=== PATIENT | female | born 1985 | race Caucasian/White ===

== ENCOUNTER 2020-01-05 09:33 | Outpatient (REF) | payer OTHER, SELFPAY ==
[2020-01-05 10:09] LABS: MANUAL DIFF FLAG NO
[2020-01-05 10:11] LABS: Basophils Absolute Auto 0.1 X10*3/uL (0.0-0.2); Basophils Percent Auto 1.1 % (0-2); Eosinophils Absolute Auto 0.3 X10*3/uL (0.0-0.4); Eosinophils Percent Auto 4.9 % (0-4); Hematocrit 40.4 % (37-47); Hemoglobin 13.8 g/dl (12.0-16.0); Lymphocytes Percent Auto 30.4 % (20-40); Mean Corpuscular HGB Conc 34.2 g/dl (31.0-35.0); Mean Corpuscular Hemoglobin 30.1 pg (27.0-33.0); Mean Corpuscular Volume 88.2 fL (80-98); Mean Platelet Volume 8.5 fL (9.4-12.3); Monocytes Absolute Auto 0.4 X10*3/uL (0.1-1.2); Monocytes Percent Auto 6.3 % (2-11); Neutrophils Absolute Auto 3.7 X10*3/uL (2.0-8.3); Neutrophils Percent Auto 57.3 % (45-73); Platelet Count 296 X10*3/uL (160-400); Red Blood Count 4.58 X10*6/uL (4.20-5.50); Red Cell Distribution Width 11.8 % (11.0-16.0); White Blood Count 6.5 X10*3/uL (4.8-10.8)
[2020-01-05 10:57] LABS: Alanine Aminotransferase 14 U/L (0-31); Albumin Level 4.1 g/dL (3.5-5.0); Alkaline Phosphatase 160 U/L (39-117); Anion Gap 11 (12-20); Aspartate Amino Transferase 14 U/L (5-31); Bilirubin Total 0.7 mg/dL (0.0-1.0); Blood Urea Nitrogen 14 mg/dL (9-16); Calcium 8.3 mg/dL (8.4-10.2); Carbon Dioxide 27 mmol/L (22-29); Chloride 107 mmol/L (96-108); Cholesterol 160 mg/dL; Estimated Glomerular Filt Rate > 60; Glucose Fasting 80 mg/dL (60-99); HDL Cholesterol 57 mg/dL; LDL Cholesterol Calculated 97 mg/dl; Potassium 4.3 mmol/l (3.3-5.1); Sodium 141 mmol/L (135-145); Total Protein 6.6 g/dL (6.5-8.0); Triglycerides 32 mg/dL
== END 2020-01-05 09:34 | disposition home or self-care (01) ==
LOC: HO.LAB 09:33
PROVIDERS: PCP Physician Assistant; Visit Provider Physician Assistant
DX: Z13.29 Encounter for screening for other suspected endocrine disorder (principal); Z13.220 Encounter for screening for lipoid disorders
CPT/HCPCS: 36415; 80053; 80061; 84443; 85025

== ENCOUNTER → 2020-01-23 13:28 | Outpatient (BNVA) | payer OTHER, SELFPAY | PROVIDERS: PCP Physician Assistant; Referring Provider Physician Assistant; Visit Provider Nurse Practitioner | DX: Z76.89 Persons encountering health services in other specified circumstances (principal) ==

== ENCOUNTER 2020-04-18 09:33 | Day surgery (SDC) | payer OTHER, SELFPAY ==
--- NOTE | 2020-04-17 09:47 | HO.ANESPROP2 ---
Documented by User: Maty Jeffers 04/17/20 09:48 HPI - Anesthesia Eval Consult details Narrative: 35yo F for Colonoscopy (CRC hx in Father) [facility] Active Problems Active Problems: All Active Problems (Updated 01/23/20 @ 15:08 by LILI Lord) No pertinent past medical history (Acute) No history of previous surgery (Acute) Family history of colon cancer in father (Acute) Past Medical History Medical History No pertinent past medical history Family History Family History Father Colon cancer, Onset Age: 50 Mother Alive and well Surgical History Surgical History No history of previous surgery Social History Social History Alcohol intake: current Alcohol intake frequency: a few times a week Alcohol type: wine Smoking Status: Never smoker Use of substances other than those prescribed or required for medical reasons: No Have you been hit, kicked, punched, or otherwise hurt by someone within the past year? If so, by whom?: No Advance Directives: No Advance Directives Information Provided: No Recently lost weight without trying: No Meds Allergies Allergy/AdvReac Type Severity Reaction Status Date / Time No Known Allergies Allergy Verified 04/18/20 09:51 Exam Exam Date and Time: April 17, 2020 0947 Documented by User: Louann Canales 04/18/20 09:56 [facility] Past Medical History Medical History No pertinent past medical history Family History Family History Father Colon cancer, Onset Age: 50 Mother Alive and well Surgical History Surgical History No history of previous surgery Social History Social History Alcohol intake: current Alcohol intake frequency: a few times a week Alcohol type: wine Smoking Status: Never smoker Use of substances other than those prescribed or required for medical reasons: No Have you been hit, kicked, punched, or otherwise hurt by someone within the past year? If so, by whom?: No Advance Directives: No Advance Directives Information Provided: No Recently lost weight without trying: No Meds Allergies Allergy/AdvReac Type Severity Reaction Status Date / Time No Known Allergies Allergy Verified 04/18/20 09:51
[2020-04-17 13:37] VITALS: BMI 24.4
[2020-04-18 09:52] VITALS: BP 111/78; PULSE 91; RESP 16; TEMP 37.2; O2SAT 98
[2020-04-18 10:01] LABS: UPreg QC Valid YES; Urine Pregnancy NEGATIVE (NEGATIVE)
[2020-04-18] MEDS: Lactated Ringers 1,000 ML 100 ML IVCONT (10:08)
--- NOTE | 2020-04-18 10:13 | HO.ANESPROP2 ---
[facility] Active Problems Active Problems: All Active Problems (Updated 04/17/20 @ 09:48 by Maty Jeffers) No history of previous surgery (Acute) Family history of colon cancer in father (Acute) Past Medical History Medical History No pertinent past medical history Family History Family History Father Colon cancer, Onset Age: 50 Mother Alive and well Surgical History Surgical History No history of previous surgery Social History Social History Alcohol intake: current Alcohol intake frequency: a few times a week Alcohol type: wine Smoking Status: Never smoker Use of substances other than those prescribed or required for medical reasons: No Have you been hit, kicked, punched, or otherwise hurt by someone within the past year? If so, by whom?: No Advance Directives: No Advance Directives Information Provided: No Recently lost weight without trying: No Meds Allergies Allergy/AdvReac Type Severity Reaction Status Date / Time No Known Allergies Allergy Verified 04/18/20 09:51 Active Medications: Current Medications Generic Name Dose Route Start Last Admin Trade Name Komal PRN Reason Stop Dose Admin Lactated Ringer's 1,000 mls @ 100 mls/hr 04/18/20 09:45 04/18/20 10:08 Lr IVCONT 100 mls/hr .Q10H MEI Administration Exam Exam Date and Time: April 18, 2020 1013 Height,Weight and Vital Signs: Height 5 ft Weight 56.699 kg Last Vital Signs Temp 99.0 F 04/18/20 09:52 Pulse 91 04/18/20 09:52 Resp 16 04/18/20 09:52 BP 111/78 04/18/20 09:52 Pulse Ox 98 04/18/20 09:52 Pertinent Lab Results Pertinent Lab Results: Laboratory Tests 04/18/20 09:45 Urine Test NEGATIVE Airway Mallampati Class: I TM Dist: >3cm Neck ROM: Full Heart: RRR Lungs: CTA
--- NOTE | 2020-04-18 10:17 | W.PM.OPN ---
Operative Note Operative Note Date of Service: 04/18/20 Narrative: Pre-op diagnosis: Colon cancer screening, Family hx of colon cancer (Dad diagnosed with stage 3 cancer at age 50 yrs and at age 55yrs). Post-op diagnosis: other (Hemorrhoids.) Procedure: COLONOSCOPY TILL CECUM Consent: Indications for the procedure and potential complications of bleeding, perforation, reaction to medications and missed diagnosis were discussed with the patient and informed consent was obtained. Instrument: Olympus PCF H 190 L variable stiffness pediatric colonoscope Monitoring: Vital signs and clinical assessment, intermittent blood pressure monitoring, continuous EKG monitoring, Pulse oximetry and Carbon Dioxide monitoring were done throughout the procedure. Colon withdrawl time was 15 minutes. Procedure: The patient was placed in the left lateral decubitis position and pre-procedure medications were administered. After a digital rectal examination of the ano-rectum, the video colonoscope was inserted into the rectum and advanced through the colon to the cecum. The colonoscope was slowly withdrawn in a retrograde panoramic fashion and the colon mucosa was carefully examined including a retroflexed view of the rectum. Findings and interventions are described below. Procedure Difficulty: Without difficulty Findings: Terminal Ileum: Not evaluated Cecum: Normal Ascending Colon: Normal Transverse Colon: Normal Descending Colon: Normal Sigmoid Colon: Normal Rectum: Normal Ano-rectum: Small non-inflamed internal hemorrhoids Colon preparation: Excellent Impression and Post Procedure Diagnosis: Colonoscopy Findings: No polyps were detected. Small hemorrhoids on retroflexed exam. Plan: Await pathology results Patient has an appointment on 04/25/20 in the [facility] with CHARLIE Lord to cancel since she is not having any GI symptoms and no biopsies were obtained during today's procedure. Repeat Colonoscopy in 5 years due to positive family hx of colon cancer. Above findings were reviewed with the patient and a handout on Hemorrhoids was given in the discharge area Surgeon: Neela Patel MD Anesthesia: MAC (Dr Singer) Estimated blood loss (mL): 0 Pathology: none sent Condition: stable Disposition: PACU
--- NOTE | 2020-04-18 10:18 | MHC.SHP ---
Pre-Procedural Eval Section A The patient is an INPATIENT: No The History & Physical has been completed within 30 days and I have reviewed it.: No Section B Chief Complaint: family hx of colon ca Relevant Family History (Specify if Yes): Yes Relevant Social History: None Present Medications: see Short Stay Collaborative assessment Medical History: No relevant PMH History of Previous Operations: No relevant previous surgery Allergies: Allergies Allergy/AdvReac Type Severity Reaction Status Date / Time No Known Allergies Allergy Verified 04/18/20 09:51 Review of Systems Sugical H&P ROS: Negative: Constitution, Cardiovascular, Respiratory and Gastrointestinal Exam Surgical H&P Exam: Normal: Heart, Normal: Lungs, Normal: Extremities and Normal: Abdomen Plan Diagnosis/Plan: Unchanged I have reviewed the history and physical and performed a pertinent physical examination on my patient. No changes have occurred unless specified.
[2020-04-18 10:58] VITALS: BP 98/56; PULSE 82; RESP 16; TEMP 36.8; O2SAT 100
--- NOTE | 2020-04-18 11:00 | HO.POSTANES ---
Post Anesthesia Evaluation Post Anesthesia Evaluation Vital Signs: Vital Signs Temp Pulse Resp BP Pulse Ox 04/18/20 10:58 98.2 F 82 16 98/56 L 100 04/18/20 09:52 99.0 F 91 16 111/78 98 Anesthesia: Monitored Mental Status: Awake Pain Control: Satisfactory Nausea/Vomiting: None Hydration: Adequate Anesthesia-Related Issues: No Anes. Related Issues
[2020-04-18 11:15] VITALS: BP 101/61; PULSE 74; RESP 18; O2SAT 100
== END 2020-04-18 11:45 | disposition home or self-care (01) ==
PROVIDERS: Nurse Practitioner; PCP Physician Assistant; Visit Provider Internal Medicine Gastroenterology
PROC: 0DJD8ZZ Inspection of Lower Intestinal Tract, Via Natural or Artificial Opening Endoscopic (ICD-10-PCS; CPT 45378; principal; 2020-04-18 10:40)
DX: Z12.11 Encounter for screening for malignant neoplasm of colon (principal); Z80.0 Family history of malignant neoplasm of digestive organs; K64.8 Other hemorrhoids
CPT/HCPCS: 45378; 81025

== ENCOUNTER 2021-04-13 10:54 | Outpatient (REF) | payer OTHER, SELFPAY ==
--- NOTE | ~2021-04-13 | US_ITS ---
EXAMINATION: US ABDOMEN LIMITED CLINICAL INFORMATION: Lump over left lower ribs. COMPARISON: None TECHNIQUE: Real-time imaging of the left upper abdominal wall FINDINGS: Palpable abnormality corresponds to a 1.3 x 1.5 x 0.4 cm hyperechoic solid avascular lesion just deep to the skin. This probably represents a lipoma. US/US abdomen limited IMPRESSION: Palpable abnormality probably corresponds to a lipoma.
--- NOTE | ~2021-04-13 | US_ITS ---
EXAMINATION: US SOFT TISSUE NECK CLINICAL INFORMATION: Soft tissue lumps over the bilateral occipital region. Question lymph nodes. COMPARISON: None TECHNIQUE: Ultrasound of the neck soft tissues is performed with high- frequency perez-scale imaging and color Doppler. FINDINGS: There are bilateral lymph nodes over the occipital area of measuring 0.5 x 0.6 x 0.1 cm on the right and 0.6 x 0.3 x 0.6 cm on the left. These are normal in size and demonstrate normal ultrasound morphology and flow. US/US soft tiss head and/or neck IMPRESSION: Bilateral normal-appearing occipital lymph nodes.
[2021-04-13 10:57] LABS: MANUAL DIFF FLAG NO
[2021-04-13 11:57] LABS: Basophils Absolute Auto 0.1 X10*3/uL (0.0-0.2); Basophils Percent Auto 0.5 % (0-2); Eosinophils Absolute Auto 0.2 X10*3/uL (0.0-0.4); Hemoglobin 13.7 g/dl (12.0-16.0); Imm Gran Abs Auto 0.03 X10*3/uL (0.00-0.03); Imm Gran Pct Auto 0.3 % (0.0-0.4); Lymphocytes Absolute Auto 2.4 X10*3/uL (1.2-4.9); Lymphocytes Percent Auto 26.3 % (20-40); Mean Corpuscular HGB Conc 34.3 g/dl (31.0-35.0); Mean Corpuscular Volume 87.7 fL (80.0-98.0); Mean Platelet Volume 8.9 fL (9.4-12.3); Monocytes Absolute Auto 0.5 X10*3/uL (0.1-1.2); Monocytes Percent Auto 5.6 % (2-11); Neutrophils Percent Auto 65.3 % (45-73); Platelet Count 295 X10*3/uL (160-400); Red Blood Count 4.56 X10*6/uL (4.20-5.50); White Blood Count 9.1 X10*3/uL (4.8-10.8)
[2021-04-13 12:28] LABS: Alanine Aminotransferase 11 U/L (0-31); Albumin Level 4.3 g/dL (3.5-5.0); Alkaline Phosphatase 71 U/L (39-117); Anion Gap 10 (12-20); Aspartate Amino Transferase 15 U/L (5-31); Bilirubin Total 0.5 mg/dL (0.0-1.0); Blood Urea Nitrogen 10 mg/dL (9-16); C Reactive Protein 0.08 mg/dL (< or = 0.50); Calcium 9.7 mg/dL (8.4-10.2); Carbon Dioxide 27 mmol/L (22-29); Chloride 106 mmol/L (96-108); Estimated Glomerular Filt Rate > 60; Glucose Random 94 mg/dL (60-115); Potassium 3.7 mmol/L (3.3-5.1); Sodium 139 mmol/L (135-145); Total Protein 7.2 g/dL (6.5-8.0)
[2021-04-13 14:23] LABS: Erythrocyte Sedimentation Rate 6 MM/HR (0-20)
== END 2021-04-13 10:55 | disposition home or self-care (01) ==
LOC: HO.LAB 10:54
PROVIDERS: PCP Physician Assistant; Visit Provider Nurse Practitioner Acute Care
DX: R59.9 Enlarged lymph nodes, unspecified (principal)
CPT/HCPCS: 36415; 76536; 76705; 80053; 85025; 85652; 86140

== ENCOUNTER 2022-11-30 14:09 | Outpatient (REF) | payer OTHER, SELFPAY ==
[2022-11-30 14:52] LABS: Appearance Urine Clear; Color Urine Yellow; Glucose Urine UA Negative (Negative); Leukocyte Esterase Urine Large (3+) (Negative); Nitrite Urine Positive (Negative); Specific Gravity - Urine 1.015 (1.005-1.025); UMIC TRIGGER UACC YES; Urine Blood Large (3+) (Negative); Urine Ketones Negative (Negative); Urine Protein 100 (2+) mg/dL (Neg-Trace)
[2022-11-30 15:07] LABS: Bacteria Urine 3+ (None Seen); Hyaline Casts Urine 0-2 /LPF (0-2); Squamous Epithelial Cell Urine 0-2 /HPF (0-2); UACC Culture Trigger YES; WBC Urine >50 /HPF (0-5)
== END 2022-11-30 14:10 | disposition home or self-care (01) ==
LOC: HO.LAB 14:09
PROVIDERS: PCP Internal Medicine; Visit Provider Internal Medicine
DX: R39.9 Unspecified symptoms and signs involving the genitourinary system (principal)
CPT/HCPCS: 81001; 87086; 87088; 87186

== ENCOUNTER 2024-03-27 07:58 | Outpatient (AMB) | payer OTHER, SELFPAY ==
--- NOTE | 2024-03-27 08:03 | A.OFFPC_ITS ---
Vital Signs 3 03/27/24 08:04 Height 4 ft 11.84 in Weight 126 lb 6 oz BMI 24.8 BP 110/60 Blood Pressure Location Lt brachial Position Sitting Pulse 78 Pulse Source Pulse Oximeter Temp 97.1 F Temp Source Skin Pulse Oximetry (%) 98 Oxygen Delivery Method Room Air Intake Visit Reasons: establish care Intake Note: Patient is here today to re-establish care. Pt decline flu shot today. Wood Type Finisher Required: No Chinese Medicine Practitioner: Not Required per policy Accompanied by: Self / Same As Patient Allergies No Known Allergies Allergy (Verified 03/27/24 08:17) Medication List - Last Reconciled 03/27/24 by Citlaly Collazo PA-C No Known Home Meds Tobacco use date assessed: 03/27/24 Dental Screening Dental Screen Date: 03/27/24 Did you have a dental visit in the last 12 months?: Yes Did you have a dental problem in the last 6 months where you did not have access to dental care?: No Was dental information given to patient?: Patient has dentist HPI establish care 2 HPI0 Details 39-year-old female coming to the office for the 1st time. In review of the notes, patient completed Pap smear with [facility] 2022. Patient also had mammogram completed 01/2023 advised to follow up at 40 for routine screening. Patient tells us today she had a colonoscopy 4 years ago 2021 and was recommended to follow up in 5 years due to having a family history of colorectal cancer. When she was seen in 2021 by her last PCP she was complaining of swollen lymph nodes which are still present but has been evaluated. She does however have a mass on the left leg on the lateral aspect of the left knee that has been growing and is tender to palpation. 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 1. Little interest or pleasure in doing things: not at all 2. Feeling down, depressed, or hopeless: not at all 3. Trouble falling or staying asleep, or sleeping too much: not at all 4. Feeling tired or having little energy: not at all 5. Poor appetite or overeating: not at all 6. Feeling bad about yourself - or that you are a failure or have let yourself or your family down: not at all 7. Trouble concentrating on things, such as reading the newspaper or watching television: not at all 8. Moving or speaking so slowly that other people could have noticed. Or the opposite - being so fidgety or restless that you have been moving around a lot more than usual: not at all 9. Thoughts that you would be better off or of hurting yourself in some way: not at all Total score: 0 Depression Screening Interpretation: Negative Depression Screening Done: Yes 47771 - PHQ-9 Billing: Yes Source: Developed by Drs. Jose Sky, Kaitlin Morgan, Dwight Aguilar and colleagues, with an educational jose from [employer]. Thrive Questionnaire Date Thrive assessed: 03/26/24 I am a: Patient What is your living situation today?: I have a steady place to live Within the past 12 months, did the food you bought not last and you didn't have the money to get more?: Never true Within the past 12 months, did you worry whether your food would run out before you got money to buy more?: Never true Do you have trouble paying for medicines?: No Do you have trouble getting transportation to medical appointments?: No Do you have trouble paying your heating and electricity bill?: No Do you have trouble taking care of your child, family member or friend?: No Do you have trouble with day-to-day activities such as bathing, preparing meals, shopping, managing finances, etc.?: No Are you currently unemployed and looking for a job?: No Are you interested in more education?: No Please select the resources that you would like help with: None Currently or been in a relationship where the following occur: No concerns reported THRIVE Score: 0 AUDIT C Alcohol Use Questionnaire (AUDIT-C) 1. How often do you have a drink containing alcohol?: 2-3 times a week 2. How many drinks containing alcohol do you have on a typical day when you are drinking?: 1 or 2 3. How often do you have six or more drinks on one occasion?: Never Total Score: 3 ARMANDO-7 AMB Questionnaire ARMANDO-7 Date ARMANDO - 7 assessed: 03/27/24 Feeling nervous, anxious, or on edge: 0 = Not at all Not being able to stop or control worryin = Not at all Worrying too much about different things: 0 = Not at all Trouble relaxin = Not at all Being so restless that it is hard to sit still: 0 = Not at all Becoming easily annoyed or irritable: 0 = Not at all Feeling afraid as if something awful might happen: 0 = Not at all Total ARMANDO-7 score (0-4 normal; 5-9 mild; 10-14 moderate; 15-21 severe): 0 Source: Developed by Drs. Jose Sky, Kaitlin Morgan, Dwight Aguilar and colleagues, with an educational jose from [employer]. ARMANDO-7 Assessment Billing ARMANDO-7 Assessment Tool: ARMANDO-7 Assessment 06328 Review of Systems Const Denies body aches, Denies fatigue, Denies fever(s), Denies frequent falls, Denies headache(s) and Denies weakness Eyes Reports no additional complaints, Denies change in vision and Reports requires corrective lenses (eye doctor yearly) ENT Denies dysphagia, Denies dizziness, Denies facial pain, Denies headache(s), Denies nasal congestion and Denies odynophagia Card Denies chest pain, Denies syncope, Denies irregular heart rhythm, Denies leg edema, Denies lightheadedness and Denies dyspnea Resp Denies cough and Denies dyspnea GI Denies abdominal pain, Denies constipation, Denies dysphagia, Denies dyspepsia, Denies diarrhea, Denies nausea, Denies odynophagia and Denies vomiting Denies urinary frequency, Denies dysuria, Denies urinary hesitancy and Denies urinary urgency Musc Denies back pain and Denies myalgias Skin/Breast Reports system reviewed and no additional complaints, except as documented Neuro Denies dizziness, Denies syncope, Denies frequent falls, Denies headache(s) and Denies weakness Psych Reports no additional complaints Endo Denies fatigue Physical exam (Primary Care) Vital Signs: Last Vital Signs Temp 97.1 F 03/27/24 08:04 BMI result Body Mass Index 24.8 Tobacco/Smoking Status: Tobacco use Status Tobacco use date assessed 04/13/21 03/27/24 08:04 Patient Tobacco Use Status Never used Tobacco 03/27/24 08:04 e-Cigarette/Vaping Use Never Used 03/27/24 08:04 PHQ-9: PHQ-9 Score PHQ-9: Total score 0 03/27/24 08:04 Depression Screening Interpretation: Negative Thrive Assessment: Date of Thrive Assessment Date Thrive assessed 03/26/24 03/27/24 08:04 Currently or been in a relationship where the following occur: No concerns reported Const General: cooperative, healthy appearing, comfortable and no acute distress Orientation/consciousness: patient oriented x3 HENMT Head: Yes normocephalic Ears: hearing grossly normal bilaterally General nose exam: Normal external nose present Eyes General: appearance normal, both eyes and all related structures Conjunctivae: conjunctivae normal Neck Neck: Yes full ROM and Yes no lymphadenopathy Resp Effort & Inspection: normal respiratory effort Auscultation: clear to auscultation bilaterally, no crackles, no rales, no rhonchi and no wheezes Cardio Rate: regular rate Rhythm: regular rhythm Skin General skin exam: no rashes or lesions noted Neuro General: patient oriented x3 Gait exam (Neuro): Normal gait present Extrem General: Yes normal to inspection, Yes full ROM and No edema Elbow/forearm/wrist images: 2 1. Localized swelling tender to palpation Psych Affect: normal affect Attitude: cooperative Insight: Good insight present (Psych) Judgement: Good judgement present (Psych) Coding Level of Care Code New Pt Level 4 (49109) Diagnoses Family history of colon cancer in father Z80.0 Soft tissue mass M79.89 Occipital lymphadenopathy R59.0 Additional Codes PHQ-9 - 80886 - PHQ-9 Billing: Yes ([id number]) ARMANDO-7 Assessment Billing - ARMANDO-7 Assessment Tool: ARMANDO-7 Assessment 54316 ([id number]) Assessment & Plan Assessment & Plan (1) Family history of colon cancer in father: Comment: age 45 CRC Code(s): Z80.0 - Family history of malignant neoplasm of digestive organs Category: Medical Plan: Referral placed to gastroenterology for possible repeat colonoscopy. (2) Soft tissue mass: Code(s): M79.89 - Other specified soft tissue disorders Category: Medical Plan: Patient complaining of soft tissue swelling on the lateral aspect of the left knee that is tender to palpation and has been growing. Ordered for ultrasound for further evaluation. (3) Occipital lymphadenopathy: Code(s): R59.0 - Localized enlarged lymph nodes Category: Medical Plan: Patient continues to have enlarged lymph nodes at the base of the skull not palpable on exam today. Patient has had these evaluated in the past determined to be benign and advised to monitor symptoms. Patient states her symptoms have not changed or worsened. Plan I ordered for blood work and we will have patient follow up in 6 months for annual exam or sooner pending blood work or if new problems arise. This note was constructed using voice recognition software. While every effort has been made to ensure accuracy and merchandising internship, still areas may have been included sometimes these areas may affect the content or meeting of the given symptoms. Total time spent caring for the patient today was 30 minutes. This includes time spent before the visit reviewing the chart, time spent during the visit, and time spent after the visit and documentation. Orders: Orders 2 Comprehensive Met. Panel Today Z00.00 - Encounter for general adult medical examination without abnormal findings Complete Blood Count Auto Diff Today Z00.00 - Encounter for general adult medical examination without abnormal findings TSH reflex Free T4 Today Z00.00 - Encounter for general adult medical examination without abnormal findings Lipid Panel Today E78.00 - Pure hypercholesterolemia, unspecified US extremity nonvascular Today M79.89 - Other specified soft tissue disorders Free T4 (Free Thyroxine) Today Z00.00 - Encounter for general adult medical examination without abnormal findings Vitamin B12 and Folate Today Z00.00 - Encounter for general adult medical examination without abnormal findings Vitamin D 25-OH Total Today Z00.00 - Encounter for general adult medical examination without abnormal findings Referrals 2 Gastroenterology Referral Z12.11 - Encounter for screening for malignant neoplasm of colon, Z80.0 - Family history of malignant neoplasm of digestive organs
[2024-03-27 08:04] VITALS: BP 110/60; PULSE 78; TEMP 36.2; O2SAT 98; BMI 24.8
== END 2024-03-27 08:32 | disposition home or self-care (01) ==
DX: Z80.0 Family history of malignant neoplasm of digestive organs (principal); M79.89 Other specified soft tissue disorders; R59.0 Localized enlarged lymph nodes

== ENCOUNTER → 2024-03-27 07:58 | Outpatient (BNVA) | payer OTHER, SELFPAY | DX: M79.89 Other specified soft tissue disorders (principal); R59.0 Localized enlarged lymph nodes; Z80.0 Family history of malignant neoplasm of digestive organs | CPT/HCPCS: 96127 ==

== ENCOUNTER 2024-04-12 14:24 | Outpatient (REF) | payer OTHER, SELFPAY ==
--- NOTE | ~2024-04-12 | US_ITS ---
CLINICAL HISTORY: M79.89 - Other specified soft tissue disorders Soft tissue ultrasound of the left knee Comparison: None FINDINGS: Images were obtained in the area of clinical concern. In this region, the soft tissue shows 3 subcutaneous hyperdense lesions without vascularity with the largest one measuring 1 x 0.6 x 1.9 cm. IMPRESSION: Possible lipomas in the region of interest. This document has been electronically signed by: Stephen Weathers MD on 04/12/2024 15:16:57
== END 2024-04-12 14:25 | disposition home or self-care (01) ==
LOC: HO.US 14:24
DX: M79.89 Other specified soft tissue disorders (principal)
CPT/HCPCS: 76882

== ENCOUNTER → 2024-04-12 14:26 | Outpatient (BNV) | payer OTHER, SELFPAY | PROVIDERS: Visit Provider Nuclear Medicine | DX: M79.89 Other specified soft tissue disorders (principal) | CPT/HCPCS: 76882 ==

== ENCOUNTER 2024-05-05 07:51 | Outpatient (REF) | payer OTHER, SELFPAY ==
[2024-05-05 11:53] LABS: MANUAL DIFF FLAG NO
[2024-05-05 12:02] LABS: Basophils Absolute Auto 0.1 X10*3/uL (0.0-0.2); Basophils Percent Auto 1.1 % (0-2); Eosinophils Absolute Auto 0.3 X10*3/uL (0.0-0.4); Eosinophils Percent Auto 5.3 % (0-4); Hematocrit 39.2 % (37.0-47.0); Hemoglobin 13.3 g/dl (12.0-16.0); Imm Gran Abs Auto 0.01 X10*3/uL (0.00-0.03); Imm Gran Pct Auto 0.2 % (0.0-0.4); Lymphocytes Absolute Auto 1.8 X10*3/uL (1.2-4.9); Lymphocytes Percent Auto 34.3 % (20-40); Mean Corpuscular HGB Conc 33.9 g/dl (31.0-35.0); Mean Corpuscular Hemoglobin 30.2 pg (27.0-33.0); Mean Corpuscular Volume 88.9 fL (80.0-98.0); Mean Platelet Volume 9.1 fL (9.4-12.3); Monocytes Absolute Auto 0.4 X10*3/uL (0.1-1.2); Monocytes Percent Auto 7.7 % (2-11); Neutrophils Absolute Auto 2.7 x10*3/uL (2.0-8.3); Neutrophils Percent Auto 51.4 % (45-73); Platelet Count 298 X10*3/uL (160-400); Red Blood Count 4.41 X10*6/uL (4.20-5.50); Red Cell Distribution Width 12.1 % (11.0-16.0); White Blood Count 5.3 X10*3/uL (4.8-10.8)
[2024-05-05 12:30] LABS: Alanine Aminotransferase 12 U/L (0-31); Albumin Level 3.9 g/dL (3.5-5.0); Alkaline Phosphatase 68 U/L (39-117); Anion Gap 9 (12-20); Aspartate Amino Transferase 19 U/L (5-31); Bilirubin Total 0.6 mg/dL (0.0-1.0); Blood Urea Nitrogen 11 mg/dL (9-16); Calcium 8.9 mg/dL (8.4-10.2); Carbon Dioxide 26 mmol/L (22-29); Chloride 109 mmol/L (96-108); Cholesterol 147 mg/dL (<200); Estimated Glomerular Filt Rate > 60; Glucose Random 88 mg/dL (60-115); HDL Cholesterol 57 mg/dL (>40); LDL Cholesterol Calculated 80 mg/dL (<100); Sodium 140 mmol/L (135-145); Total Protein 6.8 g/dL (6.5-8.0); Triglycerides 54 mg/dL (<150)
[2024-05-05 12:39] LABS: Free T4 (Free Thyroxine) 0.88 ng/dL (0.71-1.85); TSH reflex Free T4 2.22 uIU/mL (0.32-4.0); Vitamin D 25-OH Total 38.5 ng/mL (>30)
[2024-05-05 12:50] LABS: Folate 14.1 ng/mL (> or = 4.0); Vitamin B12 459 pg/mL (200-900)
== END 2024-05-05 07:52 | disposition home or self-care (01) ==
LOC: HO.HMGCLDS 07:51
DX: Z00.00 Encounter for general adult medical examination without abnormal findings (principal); E78.00 Pure hypercholesterolemia, unspecified
CPT/HCPCS: 36415; 80053; 80061; 82306; 82607; 82746; 84439; 84443; 85025

== ENCOUNTER 2024-08-20 15:10 | Outpatient (AMB) | payer OTHER, SELFPAY ==
--- NOTE | 2024-08-20 15:12 | A.OFFVIS_ITS ---
Vital Signs 08/20/24 15:17 Weight 127 lb BP 114/62 Blood Pressure Location Rt brachial Position Sitting Pulse 74 Intake Visit Reasons: cyst of the inner knee Intake Note: Patient referred by pcp Citlaly Collazo PA-C for cyst on Lt inner knee. Present for 3yrs. Patient c/o: sometimes sensitive to touch. No hx of trauma. Donor Relations Coordinator Required: No Accompanied by: Daughter Allergies No Known Allergies Allergy (Verified 08/20/24 15:16) HPI HPI cyst of the inner knee: Details: 39-year-old female referred for a lump near the knee. She describes having a lump on the anterior lateral thigh adjacent to the knee. She said this for several months . He says this has been bothering her so she wants this removed. She had an ultrasound on this this area last March, showing what appeared to be 3 lipomas, with the largest 1 about 1.9 cm in size. [facility] Medical History (Updated 08/20/24 @ 15:39 by Los Chavez MD) Lipoma of thigh No pertinent past medical history Surgical History No history of previous surgery Family History Father Colon cancer, Onset Age: 50 Mother Alive and well Social History Housing: House Alcohol intake: current Alcohol intake frequency: a few times a week Alcohol type: wine Patient Tobacco Use Status: Never used Tobacco e-Cigarette/Vaping Use: Never Used Second Hand Smoke Exposure: No service: No Current occupational status: employed Current occupation: Pre-schoolground school instructor Cognitive needs: No Hearing needs: No Vision needs: Yes (Glasses/Contacts) Review of Systems Const Denies chills and Denies fever(s) Card Denies chest pain, Denies dyspnea and Denies dyspnea on exertion Resp Denies cough, Denies dyspnea and Denies dyspnea on exertion GI Denies hematochezia and Denies change in bowel habits Denies hematuria Musc Denies back pain and Denies limited range of motion Neuro Denies focal weakness and Denies convulsions Psych Denies depression and Denies mood swings Physical Exam Const General: comfortable and no acute distress Orientation/consciousness: patient oriented x3 Neck Neck: Yes no lymphadenopathy Resp Auscultation: clear to auscultation bilaterally Cardio Rhythm: regular rhythm GI Palpation (GI): Soft to palpation, nontender and no guarding Neuro General: patient oriented x3 Extrem Other: Distal left thigh anterolateral area near the knee is note of a lipomatous mass, about 1.5 cm, mobile and well-defined Office Procedures Excision Details: She was in supine position. The area of the lipoma was prepped and draped. Lidocaine 1% was used for local anesthesia. I made an incision in the skin of the lipoma with a blade 15. This was carried down through the full-thickness of the skin and subcutaneous fat until the lipoma was visualized. I sharply dissected the lipoma off the rest of the subcutaneous layer with Metzenbaum scissors. The lipoma was delivered. This was should about 1.4 cm. Sent as specimen. I closed the incision with full-thickness nylon 3-0 simple interrupted sutures. Dressings were applied. The procedure was completed. She tolerated procedure well. There were no immediate complications. There was minimal blood loss. 92152-fvhgc/arms/legs 1.1-2cm Procedure code (CPT) selection complete Assessment & Plan Assessment & Plan (1) Lipoma of thigh: Code(s): D17.20 - Benign lipomatous neoplasm of skin and subcutaneous tissue of unspecified limb Category: Medical Plan: She wanted this removed in view of discomfort. She understood the technique of excision under local anesthesia and was aware of the risks, benefits, and alternatives Excision was done in the office under local anesthesia. She tolerated procedure well. She was given wound care instructions. I will see her in the office for a wound check in about 2 weeks. Coding Level of Care Code New Pt Level 3 (62995) Diagnoses Lipoma of thigh D17.20 CPT Codes Trunk/Arms/Legs - CPT: 55858-urjjd/arms/legs 1.1-2cm ([id number])
[2024-08-20 15:17] VITALS: BP 114/62; PULSE 74
== END 2024-08-20 15:39 | disposition home or self-care (01) ==
LOC: HO.HGS 15:11
PROVIDERS: Visit Provider Surgery
DX: D17.20 Benign lipomatous neoplasm of skin and subcutaneous tissue of unspecified limb (principal)
CPT/HCPCS: 11402; 99203

== ENCOUNTER 2024-08-20 15:10 | Outpatient (REF) | payer OTHER, SELFPAY | END 2024-08-20 15:11 | disposition home or self-care (01) | LOC: HO.LNP 15:10 | PROVIDERS: Visit Provider Surgery | DX: D17.24 Benign lipomatous neoplasm of skin and subcutaneous tissue of left leg (principal) | CPT/HCPCS: 11402; 88304 ==

== ENCOUNTER 2024-09-03 14:13 | Outpatient (AMB) | payer OTHER, SELFPAY ==
--- NOTE | 2024-09-03 14:20 | MHC.OFFVIS ---
Vital Signs 09/03/24 14:22 Height 4 ft 11 in Weight 124 lb BMI 25.0 BP 110/76 Blood Pressure Location Lt brachial Position Sitting Intake Visit Reasons: s/p cyst of the inner knee Intake Note: cyst removed from left knee 2 weeks ago. Denies no pain no swelling or bruising Information Interpreted: clinical only Allergies No Known Allergies Allergy (Verified 09/03/24 14:24) Medication List - Last Reconciled 09/03/24 by Nelly Marcos LPN No Known Home Meds Patient : No Do you need a note to return to daycare/school/sports/work: No HPI HPI s/p cyst of the inner knee: Details: Patient presenting for wound check and suture removal of left lower extremity lipoma excision site. She denies any bleeding, pain associated with the incision site. Did notice some pulling with moving due to the location of the sutures. Denies fever, chills. [facility] Medical History (Updated 09/03/24 @ 14:26 by Nelly Marcos LPN) Cyst of left knee joint Lipoma of thigh No pertinent past medical history Surgical History (Updated 09/03/24 @ 14:41 by Amador Ortiz PA-C) No history of previous surgery Family History Father Colon cancer, Onset Age: 50 Mother Alive and well Social History Housing: House Alcohol intake: current Alcohol intake frequency: a few times a week Alcohol type: wine Patient Tobacco Use Status: Never used Tobacco e-Cigarette/Vaping Use: Never Used Second Hand Smoke Exposure: No Patient : No service: No Current occupational status: employed Current occupation: Pre-schoolschool bus driver/teacher assistant Cognitive needs: No Hearing needs: No Vision needs: Yes (Glasses/Contacts) Review of Systems Const All systems reviewed & are unremarkable except as noted in HPI and below Physical Exam Vital Signs: Last Vital Signs BP 110/76 09/03/24 14:22 BMI result Body Mass Index 25.0 Const General: healthy appearing, comfortable and no acute distress Orientation/consciousness: patient oriented x3 Resp Effort & Inspection: normal respiratory effort and able to speak in complete sentences Skin Other: Left lower extremity: Lipoma excision site appears to be healing well to sutures remain in place, removed without complication, patient tolerated well. No surrounding erythema, nontender Neuro General: patient oriented x3 Assessment & Plan Assessment & Plan (1) Lipoma of thigh: Code(s): D17.20 - Benign lipomatous neoplasm of skin and subcutaneous tissue of unspecified limb Category: Medical (2) S/P excision of lipoma: Comment: Left lower extremity, above knee Code(s): Z98.890 - Other specified postprocedural states; Z86.018 - Personal history of other benign neoplasm Category: Medical Plan 39-year-old female presenting to the office for wound check, suture removal after left lower extremity lipoma excision on 08/20/2024. Patient doing well, not experiencing any pain at the incision site. On exam the wound appears to be healing well, it is clean and intact. two sutures remain in place, these were removed in the office. Patient tolerated this well. There was no surrounding erythema the area was nontender and not warm to the touch. No concern for infection at this time. Surgical pathology as follows, angiolipoma. Patient no longer requiring follow-up, okay to resume everyday activities. Patient can follow-up as needed for any future concerns Coding Level of Care Code Est Pt Level 3 (25759) Diagnoses Lipoma of thigh D17.20 S/P excision of lipoma Z98.890; Z86.018
[2024-09-03 14:22] VITALS: BP 110/76; BMI 25.0
== END 2024-09-03 14:43 | disposition home or self-care (01) ==
LOC: HO.HGS 14:14
DX: D17.20 Benign lipomatous neoplasm of skin and subcutaneous tissue of unspecified limb (principal); Z98.890 Other specified postprocedural states; Z86.018 Personal history of other benign neoplasm
CPT/HCPCS: 99213

== ENCOUNTER 2024-10-10 14:56 | Outpatient (AMB) | payer OTHER, SELFPAY ==
--- NOTE | 2024-10-10 14:59 | A.OFFPC_ITS ---
Vital Signs 10/10/24 15:00 Height 4 ft 11 in Weight 124 lb 4 oz BMI 25.1 BP 102/58 L Blood Pressure Location Lt brachial Position Sitting Pulse 83 Pulse Oximetry (%) 98 Oxygen Delivery Method Room Air Intake Visit Reasons: Annual PE Private Banker Required: No Accompanied by: Self / Same As Patient Allergies No Known Allergies Allergy (Verified 10/10/24 15:14) Medication List - Last Reconciled 10/10/24 by Citlaly Collazo PA-C No Known Home Meds Tobacco use date assessed: 03/27/24 Dental Screening Dental Screen Date: 03/27/24 Did you have a dental visit in the last 12 months?: No Did you have a dental problem in the last 6 months where you did not have access to dental care?: No Was dental information given to patient?: No HPI Annual PE HPI Details 39 year old female coming to the office for annual exam. In review of the notes, patient was seen by general surgery for excision of lipoma, doing well post op. Presenting with a routine wellness examination and follow-up on previous medical conditions. The patient had a lipoma removed at the beginning of the summer, with no visible signs remaining post-surgery. Patient has no acute concerns today. mammogram: negative mammogram 2023 colonoscopy: awaiting schedule vaccines: UTD and following with [facility] field artillery officer pap smear: UTD 2022 [facility] Medical History (Updated 10/10/24 @ 15:33 by Citlaly Collazo PA-C) Cyst of left knee joint Lipoma of thigh No pertinent past medical history Surgical History No history of previous surgery Family History Father Colon cancer, Onset Age: 50 Mother Alive and well Social History Housing: House Alcohol intake: current Alcohol intake frequency: a few times a week Alcohol type: wine Patient Tobacco Use Status: Never used Tobacco e-Cigarette/Vaping Use: Never Used Second Hand Smoke Exposure: No service: No Current occupational status: employed Current occupation: Pre-schoolmontessori preschool teacher Cognitive needs: No Hearing needs: No Vision needs: Yes (Glasses/Contacts) Questionnaire PHQ-9 Over the last 2 weeks, how often have you been bothered by any of the following problems? 1. Little interest or pleasure in doing things: not at all 2. Feeling down, depressed, or hopeless: not at all 3. Trouble falling or staying asleep, or sleeping too much: not at all 4. Feeling tired or having little energy: not at all 5. Poor appetite or overeating: not at all 6. Feeling bad about yourself - or that you are a failure or have let yourself or your family down: not at all 7. Trouble concentrating on things, such as reading the newspaper or watching television: not at all 8. Moving or speaking so slowly that other people could have noticed. Or the opposite - being so fidgety or restless that you have been moving around a lot more than usual: not at all 9. Thoughts that you would be better off or of hurting yourself in some way: not at all Total score: 0 Depression Screening Interpretation: Negative Depression Screening Done: Yes Source: Developed by Drs. Jose Sky, Kaitlin Morgan, Dwight Aguilar and colleagues, with an educational jose from [employer]. Thrive Questionnaire Date Thrive assessed: 03/26/24 I am a: Patient What is your living situation today?: I have a steady place to live Within the past 12 months, did the food you bought not last and you didn't have the money to get more?: Never true Within the past 12 months, did you worry whether your food would run out before you got money to buy more?: Never true Do you have trouble paying for medicines?: No Do you have trouble getting transportation to medical appointments?: No Do you have trouble paying your heating and electricity bill?: No Do you have trouble taking care of your child, family member or friend?: No Do you have trouble with day-to-day activities such as bathing, preparing meals, shopping, managing finances, etc.?: No Are you currently unemployed and looking for a job?: No Are you interested in more education?: No Please select the resources that you would like help with: None Currently or been in a relationship where the following occur: No concerns reported THRIVE Score: 0 ARMANDO-7 AMB Questionnaire ARMANDO-7 Date ARMANDO - 7 assessed: 03/27/24 Feeling nervous, anxious, or on edge: 0 = Not at all Not being able to stop or control worryin = Not at all Worrying too much about different things: 0 = Not at all Trouble relaxin = Not at all Being so restless that it is hard to sit still: 0 = Not at all Becoming easily annoyed or irritable: 0 = Not at all Feeling afraid as if something awful might happen: 0 = Not at all Total ARMANDO-7 score (0-4 normal; 5-9 mild; 10-14 moderate; 15-21 severe): 0 Source: Developed by Drs. Jose Sky, Kaitlin Morgan, Dwight Aguilar and colleagues, with an educational jose from [employer]. Review of Systems Const Denies body aches, Denies fatigue, Denies fever(s), Denies frequent falls, Denies headache(s) and Denies weakness Eyes Reports no additional complaints and Denies change in vision ENT Denies dysphagia, Denies dizziness, Denies facial pain, Denies headache(s), Denies nasal congestion and Denies odynophagia Card Denies chest pain, Denies syncope, Denies irregular heart rhythm, Denies leg edema, Denies lightheadedness and Denies dyspnea Resp Denies cough and Denies dyspnea GI Denies constipation, Denies dysphagia, Denies dyspepsia, Denies diarrhea, Denies nausea, Denies odynophagia and Denies vomiting Denies urinary frequency, Denies dysuria, Denies urinary hesitancy and Denies urinary urgency Musc Denies back pain and Denies myalgias Skin/Breast Reports system reviewed and no additional complaints, except as documented Neuro Denies dizziness, Denies syncope, Denies frequent falls, Denies headache(s) and Denies weakness Psych Reports no additional complaints Endo Denies fatigue Physical exam (Primary Care) Vital Signs: Last Vital Signs Pulse 83 10/10/24 15:00 BP 102/58 L 10/10/24 15:00 Pulse Ox 98 10/10/24 15:00 Oxygen Delivery Method Room Air 10/10/24 15:00 BMI result Body Mass Index 25.1 Tobacco/Smoking Status: Tobacco use Status Tobacco use date assessed 03/27/24 10/10/24 15:03 Patient Tobacco Use Status Never used Tobacco 10/10/24 15:03 e-Cigarette/Vaping Use Never Used 10/10/24 15:03 PHQ-9: PHQ-9 Score PHQ-9: Total score 0 10/10/24 15:15 Depression Screening Interpretation: Negative Thrive Assessment: Date of Thrive Assessment Date Thrive assessed 03/26/24 10/10/24 15:03 Currently or been in a relationship where the following occur: No concerns reported Const General: cooperative, healthy appearing, comfortable and no acute distress Orientation/consciousness: patient oriented x3 HENMT Head: Yes normocephalic Ears: hearing grossly normal bilaterally, external ears normal, TM's normal bilaterally and EAC's normal General nose exam: Normal external nose present Face and sinus: Yes normal facial exam and Yes sinuses nontender Mouth: Normal oral and palatal mucosa present and tongue normal Throat: Yes posterior oropharynx normal Eyes General: appearance normal, both eyes and all related structures Conjunctivae: conjunctivae normal Pupils: Equal, round and reactive pupils present EOM: EOMs intact bilaterally and No Nystagmus present Neck Neck: Yes normal visual inspection, Yes full ROM and Yes no lymphadenopathy Chest Chest palpation & inspection: normal inspection of the chest Resp Effort & Inspection: normal respiratory effort Auscultation: clear to auscultation bilaterally, no crackles, no rales, no rhonchi, no wheezes and breath sounds present Cardio Rate: regular rate Rhythm: regular rhythm Peripheral pulses: radial pulses present and dorsalis pedis present GI Inspection: Yes normal to inspection and No Abdominal wall edema Palpation (GI): Soft to palpation, not firm and nontender Auscultation: normal bowel sounds Rectal Exam - Female: deferred General: Yes no CVA tenderness Back/Spine/Pelvis Back: no CVA tenderness Skin General skin exam: no rashes or lesions noted Neuro General: patient oriented x3 Cranial nerves: Yes Equal, round and reactive pupils present, Yes Midline tongue present, Yes Ability to bilaterally elevate shoulders present and No Nystagmus present Gait exam (Neuro): Normal gait present Extrem General: Yes normal to inspection, Yes full ROM, No no pedal edema and No edema Psych Speech and movement: Normal speech and movement present Affect: normal affect Insight: Good insight present (Psych) Judgement: Good judgement present (Psych) Coding Level of Care Code Est Pt Prev Care 18-39y(12705) Diagnoses Annual physical exam Z00.00 Family history of colon cancer in father Z80.0 Assessment & Plan Assessment & Plan (1) Annual physical exam: Code(s): Z00.00 - Encounter for general adult medical examination without abnormal findings Category: Medical Plan: The patient will continue with routine wellness visits and follow-up on preventative care measures. A colonoscopy is scheduled due to previous procedure history, and a mammogram is recommended due to findings of fatty tissue, with follow-up planned before the patient turns 40. The patient is advised to maintain an active lifestyle to potentially reduce menopausal symptoms. (2) Family history of colon cancer in father: Comment: age 45 CRC Code(s): Z80.0 - Family history of malignant neoplasm of digestive organs Category: Medical Plan: She is awaiting a schedule from GI. Plan This note was constructed using voice recognition software. While every effort has been made to ensure accuracy and travel information center supervisor, still areas may have been included sometimes these areas may affect the content or meeting of the given symptoms. Total time spent caring for the patient today was 30 minutes. This includes time spent before the visit reviewing the chart, time spent during the visit, and time spent after the visit and documentation. Patient was informed and verbally consented to the use of an ambient scribe for clinic note documentation during this visit.
[2024-10-10 15:00] VITALS: BP 102/58; PULSE 83; O2SAT 98; BMI 25.1
--- OUTSIDE RECORDS SUMMARY | 2024-10-10 15:02 | XMS_ITS | Clinical Summary ---
Author Organization [facility] Address [address] [place] [phone] Phone Care Team Providers Care Window Treatment Installer Name Role Phone OnelJillian garcia YAQUELIN Unavailable Jose Muñoz MD Unavailable Erin Munoz MD Unavailable [phone] Vicenta Saavedra MD Unavailable Jasson Freedman MD Unavailable [phone] Precious Melvin MD Unavailable [phone] Ky Ibanez Primary Care Provider + Allergies No known active allergies Medications No known medications Active Problems No known active problems Resolved Problems Problem Noted Date Diagnosed Date Resolved Date Normal intrauterine , antepartum 06/12/2019 01/28/2023 Positive GBS test 05/17/2019 01/28/2023 Assessment & Plan (06/06/2019 11:31 AM EDT): Reviewed with patient. Encounter for supervision of normal in third trimester 10/31/2018 01/28/2023 Overview (06/12/2019): care Dating criteria: LMP c/w 1st tri US Rh positive GC/Chlam neg Tdap given Apr 11, also! Flu declines Hgb 11 GTT 80 GBS pos PPBC * screening declined (normal anatomy scan) Assessment & Plan (06/06/2019 11:49 AM EDT): She notes good movement. She denies any vaginal bleeding, LOF or regular contractions. Overall, she is doing well. Reviewed Covid sheet with patient and self isolation from now until delivery. Offered membrane sweeping and patient preferred to to that. Assessment & Plan (04/26/2019 2:45 PM EST): She notes good movement. She denies any vaginal bleeding, LOF or regular contractions. Overall, she is doing well. Assessment & Plan (03/27/2019 7:11 AM EST): Declines flu vaccine. Reviewed normal CBC/glucola. +FM. Will accept Tdap at [place]. Assessment & Plan (02/23/2019 10:15 AM EST): Feeling well, no concerns. Still thinking about flu vaccine; again encouraged. She will do glucola within next few weeks. Assessment & Plan (01/23/2019 3:37 PM EST): Overall, she is doing well. She feels movement. She is not sure if she wants the flu vax. Plan on CBC and glucola at next visit. Encounters Date Type Department Care Team Description 08/27/2024 2:10 PM EDT Office Visit [facility] [address] [place] [address] [place] [address] Jillian Wilson CNM Encounter for screening mammogram for malignant neoplasm of breast (Primary Dx); Encounter for annual routine gynecological examination from Last 3 Months Immunizations Immunization Administration Dates Next Due Tdap 04/11/2019,06/25/2015,02/28/2015 Family History Medical History Relation Comments Cancer Father Relation Status Comments Brother Alive Daughter Alive Father colon cancer Mother Alive Sister Alive Son Alive Social History Tobacco Use Types Packs/Day Years Used Date Smoking Tobacco: Former Smokeless Tobacco: Never Comments:college days Alcohol Use Standard Drinks/Week Comments Yes 5 (1 standard drink = 0.6 oz pur e alcohol) per week Education Answer Date Recorded Are you interested in more education? Not on kendy e 06/25/2022 Are you concerned about learning? Not on file 06/25/2022 No 06/25/2022 No 06/25/2022 Digital Access Answer Date Recorded No 07/23/2022 No 07/23/2022 Reliable internet access at home? Not on file 07/23/2022 Device with a working camera? 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 Not on file Not on file Not on file Last Filed Vital Signs Vital Sign Reading Time Taken Comments Blood Pressure 100/58 08/27/2024 2:17 PM EDT Pulse 83 10/05/2022 7:15 PM EDT Temperature 36.4 C (97.5 F) 10/05/2022 7:15 PM EDT Respiratory Rate 18 10/05/2022 7:15 PM EDT Oxygen Saturation 99% 10/05/2022 7:15 PM EDT Inhaled Oxygen Concentration - - Weight 57.6 kg (127 lb) 08/27/2024 2:17 PM EDT Height 152.4 cm (5') 08/27/2024 2:17 PM EDT Body Mass Index 24.8 08/27/2024 2:17 PM EDT Plan of Treatment Health Maintenance Due Date Last Done Comments DEPRESSION SCREENING 1997 SMOKING Hx and SMOKELESS TOBACCO SCREENING 1998 COVID-19 VACCINE ( - 2023-2 5 season) 2023 PAP SMEAR 01/25/2028 01/24/2023, 11/12/2016 Adult Td,Tdap Booster 04/11/2029 04/11/2019 , 06/25/2015, 02/28/2015 HEPATITIS C SCREENING Completed 11/06/2018 HIV ONE-TIME SCREENING (18-6 5 YEARS) Completed 11/06/2018 HEPATITIS A VACCINES Aged Out No long er eligible based on patient's age to complete this topic HIB VACCINES Aged Out No longer eligi ble based on patient's age to complete this topic MENINGOCOCCAL VACCINES (ACWY) Aged Out No longer eligible based on patient's age to complete this topic MENINGOCOCCAL VACCINES (B) Aged Out N o longer eligible based on patient's age to complete this topic PNEUMOCOCCAL VACCINES (0-49 years) Aged Out No longer eligible b ased on patient's age to complete this topic Medical Devices Not on file Procedures Procedure Name Priority Date/Time Associated Diagnosis Comments PAP TEST Routine 01/24/2023 12:00 AM EST HEPATITIS C ANTIBODY, QUALITATIVE Routine 11/06/2018 3:20 PM EDT Encounter for supervision of other normal in first trimester from Last 3 Months or Most Recently Relevant to Health Maintenance Results * Pap Test (01/24/2023 12:00 AM EST) 01/24/2023 01/25/2023 9:3 4 AM EST Narrative SEE NARRATIVE - 01/27/2023 10:45 [place] [address] Conditioning Room Worker: Larisa Mckenna MD ACCOUNT SERVICES COORDINATOR Cytology Report FINAL DIAGNOSIS A. PAP SMEAR (SUREPATH) CE: SPECIMEN ADEQUACY: Satisfactory for evaluation; transformation zone present. INTERPRETATION: NEGATIVE FOR INTRAEPITHELIAL LESION OR MALIGNANCY. Electronically Signed Out By: DAHLIA Venegas(ASCP) The Pap test is a screening test primarily for squamous cancers and precursors and has associated false-negative and false-positive results. New technologies such as liquid-based preparations may decrease but will not eliminate all false-negative results. Regular sampling and follow-up of unexplained clinical signs and symptoms are recommended to minimize false negative results. PROCEDURES/ADDENDA HPV Testing (Requested) Ordered Date: 01/25/2023 A. PAP SMEAR (SUREPATH) CE: Human Papilloma Virus Test NEGATIVE for high-risk Human Papilloma Virus types 16, 18, 45 and the Other high risk probe set (Includes 31, 33, 35, 39, 51, 52, 56, 58, 59, 66, 68) Note: Testing performed by [employer] Onclarity HR-HPV analysis. Clinical correlation is advised. This HPV test was performed at [facility], [address] [place] [address]. This test has been FDA approved for SurePath cervical cytology specimens. The accuracy and precision of this test for all other specimen sources has been verified in the Cytopathology Laboratory of the [facility] and has not been cleared or approved by the U.S. Food and Drug Administration. Clinical correlation is advised. CLINICAL HISTORY Date of Last Menstrual Period: 01-12-2023 Other Clinical Conditions: Screening Pap SPECIMEN SOURCE A: PAP SMEAR (SUREPATH) CE Patient Name: CHRISTOPHER ZAPATA : 1985 (Age: 37) Sex: F Institution: [facility] Location: [facility] Date of Collection: 01/24/2023 Date of Reported: 01/27/2023 10:45 Results to: Jillian Wilson MSN Jillian Wilson CN CYTOLOGY ORDERABLES Final Result SEE NARRATIVE * Hepatitis C antibody, qualitative (11/06/2018 3:20 PM EDT) HCV NON-REACTIV E NON-REACTI VE [facility] Blood 11/06/2018 3:20 PM EDT 11/06/2018 3:25 PM EDT us Ally Trinh [employer] [facility] BLOOD ORDERABLES Final Res ult [address] [phone] from Last 3 Months or Most Recently Relevant to Health Maintenance [place] [address] [place] [address] HMO [facility] [address] [place], [place] [address]O [facility] [address] [place], [place] [address]O O O Advance Directives For more information, please contact: [phone] (9AM - 5PM [place], Tuesday-Tuesday) * Full Code (Presumed) (Latest Code Status on File) Date Activated Date Inactivated Comments 06/12/2019 7:42 PM * Full Code (Presumed) Date Activated Date Inactivated Comments 06/12/2019 1:21 PM 06/12/2019 7:42 PM Care Teams Window Treatment Installer Relationship Specialty Start Date End Date Ky Ibanez PA [address] [place] [phone] PCP - General 05/08/19 Jillian Wilson CNM [address] [place] [phone] [email or web address] Historical LMR Provider 12/15/16 Jose Muñoz MD [address] [place] [phone] Historical LMR Provider 12/15/16 Erin Munoz MD [address] [place] [phone] Historical LMR Provider 12/15/16 Vicenta Saavedra MD [address] [place] [phone] Historical LMR Provider 12/15/16 Jasson Freedman MD [address] [place] [phone] [email or web address] Historical LMR Provider 12/15/16 Precious Melvin MD [address] [place] [id number] [email or web address] Historical LMR Provider 12/15/16 Additional Source Comments The information contained in this document represents components of the legal health record. It is not the complete legal health record.[facility]
== END 2024-10-10 15:26 | disposition home or self-care (01) ==
LOC: HO.HMCH 14:56
DX: Z00.00 Encounter for general adult medical examination without abnormal findings (principal); Z80.0 Family history of malignant neoplasm of digestive organs